=== PATIENT | female | born 1970 | race Caucasian/White ===

== ENCOUNTER 2016-12-27 09:09 | Emergency (ER) | payer OTHER ==
[~2016-12-27] VITALS: Ht 160 cm; Wt 155.9 kg
[~2016-12-27 09:09] MED LIST: ADVIL200 M1 PO; ADVIL200 MG PO; ASPIR-LOW81 MG PO; CLINDAMYCIN HC150 MG PO; CLONAZEPAM1 MG PO; COMBIVENT200 INHALA IH; CYMBALTA30 MG PO; CYMBALTA60 MG PO; DESYREL100 MG PO; EFFEXOR XR150 MG PO; FLEXERIL10 MG PO; FOLIC ACID1 MG PO; GLIPIZIDE5 MG PO; GLUCOPHAGE500 MG PO; HYDROXYZINE HCL50 MG PO; KLONOPIN1 M2 PO; KLONOPIN1 MG PO; LEXAPRO20 MG PO; LO-DOSE ASPIRIN81 M2 PO; LORAZEPAM0.5 MG PO; MEDROL DOSEPAK4 MG PO; METFORMIN HCL500 MG PO; NAPROXEN500 MG PO; NORCO 5/3251 TABLET PO; PEN-VEE K,VEET500 MG PO; PERCOCET 5/31 TABLET PO; PRAVACHOL10 MG PO; RANITIDINE HCL150 MG PO; SEROQUEL50 MG PO; SYNTHROID100 MCG PO; SYNTHROID50 MCG PO; TRAMADOL HCL50 MG PO; TRAZODONE HCL50 MG PO; VENLAFAXINE HCL75 M3 PO; WYGESIC,DARV1 TABLET PO; ZESTRIL5 MG PO; ZOFRAN ODT4 MG PO
[2016-12-27 09:14] VITALS: BP 133/82
[2016-12-27] MEDS ORDERED: HYCODAN SYRUP480 ML PO (10:54)
[2016-12-27] MEDS ORDERED: VENTOLIN HFA18 GM IH (10:54)
== END 2016-12-27 11:08 | disposition home or self-care (01) ==
LOC: EME 09:09
DX: J20.9 Acute bronchitis, unspecified (principal); E11.9 Type 2 diabetes mellitus without complications; I10 Essential (primary) hypertension; K21.9 Gastro-esophageal reflux disease without esophagitis; E03.9 Hypothyroidism, unspecified; Z87.891 Personal history of nicotine dependence
CPT/HCPCS: 71020; 99281; 99283

== ENCOUNTER 2017-06-13 17:42 | Emergency (ER) | payer OTHER ==
[~2017-06-13] VITALS: Ht 162.6 cm; Wt 156.1 kg
[~2017-06-13 17:42] MED LIST changes: +HYCODAN SYRUP480 ML PO; +VENTOLIN HFA18 GM IH
[2017-06-13] MEDS ORDERED: NORCO 5/3251 TABLET PO (19:55)
[2017-06-13] MEDS ORDERED: KEFLEX500 MG PO (19:55)
[2017-06-13 20:15] VITALS: BP 110/72
== END 2017-06-13 20:18 | disposition home or self-care (01) ==
LOC: EME 17:42
DX: T25.222A Burn of second degree of left foot, initial encounter (principal); X12.XXXA Contact with other hot fluids, initial encounter; Y93.G3 Activity, cooking and baking; E11.9 Type 2 diabetes mellitus without complications
CPT/HCPCS: 99281; 99284